=== PATIENT | male | born 1940 | race Caucasian/White ===

== ENCOUNTER 2018-10-21 14:02 | Inpatient (IN) ==
[2018-10-21 14:31] LABS: Basophils % 0.3 % (0.0-0.8); Hematocrit 48.6 VOL% (42.0-52.0); Immature Granulocytes % 0.3 %; Immature Granulocytes Absolute 0.02 #; Lymphocytes # 0.5 10*3/uL (1.4-4.0); Lymphocytes % 6.5 % (21.2-54.2); Mean Corpuscular HGB Conc 32.9 GM/DL (32-36); Mean Corpuscular Hemoglobin 31 PG (27-34); Mean Corpuscular Volume 93.8 FL (87-102); Mean Platelet Volume 10.6 FL (9.6-12.0); Monocytes # 0.6 10*3/uL (0.11-0.8); Monocytes % 7.7 % (1.7-12.7); Neutrophils # 6.8 10*3/uL (1.4-7.4); Neutrophils % 85.2 % (38.7-73.9); Platelet Count 174 T/CUMM (130-400); Red Blood Count 5.18 MC/CUMM (3.8-5.5); Red Cell Distribution Width 12.6 % (9.3-17.3)
[2018-10-21 14:55] LABS: Albumin 3.6 G/DL (3.4-5.0); Bilirubin,Total 1.4 MG/DL (0.2-1.0); Calcium 8.9 MG/DL (8.5-10.1); Osmolality,Calculated 274.7 MOS/KG (273-304); Potassium 4.9 MMOL/L (3.5-5.1); Total Protein 7.8 G/DL (6.4-8.3)
[2018-10-21] MEDS ORDERED: DEXAMETHASONE 10 MG/1 ML VIAL IV STA (15:04)
[2018-10-21] MEDS ORDERED: SODIUM CHLORIDE 0.9% 1,000 ML IV STA (15:06)
[2018-10-21] MEDS ORDERED: chlorproMAZINE 25 MG/1 ML AMP IM STA (15:21)
[2018-10-21 15:42] LABS: Apearance,Urine Slightly Hazy (Clear); Bacteria,Urine Occasional /HPF (Few); Bilirubin,Urine Negative (Negative); Blood, Urine Negative (Negative); Glucose,Urine (UA) Negative (Negative); Hyaline Casts,Urine 3 /LPF (0-3); Ketones,Urine 5 mg/dL (Negative); Mucus,Urine Occasional /LPF (Occasional); Nitrite,Urine Negative (Negative); Protein,Urine 100 MG/DL; RBC,Urine 1 /HPF (0-4); Urine Color Yellow (Yellow); Urine Specific Gravity 1.027 (1.001-1.035); WBC,Urine 2 /HPF (0-6)
[2018-10-21 15:53] LABS: Hypochromasia Slight; Platelet Estimate Normal
[2018-10-21] MEDS ORDERED: MAGNESIUM SULF RIDER 2 GM in PREMIX 1 EACH IV PRN (18:09)
[2018-10-21] MEDS ORDERED: ZALEPLON 5 MG CAPSULE PO PRN (18:09)
[2018-10-21] MEDS ORDERED: ONDANSETRON 4 MG/2 ML VIAL IV PRN (18:09)
[2018-10-21] MEDS ORDERED: DEXTROSE 50% 25 GM/50 ML VIAL IV PRN (18:09)
[2018-10-21] MEDS ORDERED: ACETAMINOPHEN 325 MG TABLET PO PRN (18:09)
[2018-10-21] MEDS ORDERED: PROMETHAZINE 25 MG/1 ML VIAL IM PRN (18:09)
[2018-10-21] MEDS ORDERED: MAGNESIUM SULF RIDER 4 GM in PREMIX 1 EACH IV PRN (18:09)
[2018-10-21] MEDS ORDERED: POTASSIUM CHLORIDE RIDER 10 MEQ in PREMIX 1 EACH IV PRN (18:09)
[2018-10-21] MEDS ORDERED: GLUCAGON 1 MG VIAL IM PRN (18:09)
[2018-10-21] MEDS: SODIUM CHLORIDE 0.9% 1,000 ML IV SCH (19:40)
[2018-10-21] MEDS: DOCUSATE SODIUM 100 MG CAPSULE PO SCH (20:56)
[2018-10-21] MEDS: HEPARIN 5,000 UNIT/1 ML VIAL SUBCUT SCH (21:19)
[2018-10-22 03:14] LABS: Basophils % 0.1 % (0.0-0.8); Hematocrit 41.6 VOL% (42.0-52.0); Hemoglobin 13.9 GM/DL (14.0-18.0); Immature Granulocytes % 0.3 %; Immature Granulocytes Absolute 0.02 #; Lymphocytes # 0.7 10*3/uL (1.4-4.0); Mean Corpuscular HGB Conc 33.4 GM/DL (32-36); Mean Corpuscular Hemoglobin 31 PG (27-34); Mean Corpuscular Volume 92.7 FL (87-102); Mean Platelet Volume 10.8 FL (9.6-12.0); Monocytes # 0.3 10*3/uL (0.11-0.8); Monocytes % 3.7 % (1.7-12.7); Neutrophils # 5.8 10*3/uL (1.4-7.4); Neutrophils % 85.9 % (38.7-73.9); Platelet Count 131 T/CUMM (130-400); Red Blood Count 4.49 MC/CUMM (3.8-5.5); Red Cell Distribution Width 12.5 % (9.3-17.3); White Blood Count 6.8 T/CUMM (4-12)
[2018-10-22 03:50] LABS: Bilirubin,Total 0.7 MG/DL (0.2-1.0); Calcium 8.6 MG/DL (8.5-10.1); Osmolality,Calculated 279.2 MOS/KG (273-304); Potassium 4.3 MMOL/L (3.5-5.1); Thyroid Stimulating Hormone 0.892 uIU/ml (0.358-3.74); Total Protein 6.8 G/DL (6.4-8.3)
[2018-10-22] MEDS: SODIUM CHLORIDE 0.9% 1,000 ML IV SCH ×2 (04:41→14:33)
[2018-10-22] MEDS: HEPARIN 5,000 UNIT/1 ML VIAL SUBCUT SCH ×3 (04:41→20:40)
[2018-10-22] MEDS ORDERED: diphenhydrAMINE 50 MG/1 ML VIAL IV ONE (08:00)
[2018-10-22] MEDS ORDERED: LORazepam 2 MG/1 ML VIAL IV ONE (08:00)
[2018-10-22] MEDS: DOCUSATE SODIUM 100 MG CAPSULE PO SCH ×2 (09:01→20:40)
[2018-10-22] MEDS: PANTOPRAZOLE 40 MG TABLET PO SCH (09:01)
[2018-10-22] MEDS: DEXAMETHASONE 4 MG/1 ML VIAL IV SCH ×2 (11:54→20:54)
[2018-10-22] MEDS ORDERED: DIAZEPAM 5 MG TABLET PO ONE (12:28)
[2018-10-22] MEDS ORDERED: chlorproMAZINE INJ 25 MG in SODIUM CHLORIDE 0.9% 100 ML IV ONE (14:48)
[2018-10-23] MEDS: HEPARIN 5,000 UNIT/1 ML VIAL SUBCUT SCH ×2 (04:11→15:38)
[2018-10-23 04:43] LABS: Hematocrit 40.7 VOL% (42.0-52.0); Hemoglobin 13.5 GM/DL (14.0-18.0); Lymphocytes % 6.3 % (21.2-54.2); Mean Corpuscular HGB Conc 33.2 GM/DL (32-36); Mean Corpuscular Hemoglobin 31 PG (27-34); Mean Platelet Volume 11.7 FL (9.6-12.0); Neutrophils % 88.4 % (38.7-73.9); Platelet Count 132 T/CUMM (130-400); Red Blood Count 4.33 MC/CUMM (3.8-5.5); Red Cell Distribution Width 12.5 % (9.3-17.3); White Blood Count 7.8 T/CUMM (4-12)
[2018-10-23 04:44] LABS: Basophils % 0.3 % (0.0-0.8); Immature Granulocytes % 0.3 %; Immature Granulocytes Absolute 0.02 #; Lymphocytes # 0.5 10*3/uL (1.4-4.0); Monocytes # 0.4 10*3/uL (0.11-0.8); Monocytes % 4.7 % (1.7-12.7); Neutrophils # 6.9 10*3/uL (1.4-7.4)
[2018-10-23 05:23] LABS: Albumin 2.6 G/DL (3.4-5.0); Bilirubin,Total 0.7 MG/DL (0.2-1.0); Osmolality,Calculated 282.7 MOS/KG (273-304); Potassium 4.2 MMOL/L (3.5-5.1); Thyroid Stimulating Hormone 2.33 uIU/ml (0.358-3.74); Total Protein 6.4 G/DL (6.4-8.3)
[2018-10-23 06:07] LABS: Band Neutrophils 14 % (0-10); Lymphocytes 7 % (20-55); Segmented Neutrophils 75 % (50-85)
[2018-10-23 06:09] LABS: Platelet Estimate Normal; Total Cells Counted 100
[2018-10-23] MEDS ORDERED: FUROSEMIDE 40 MG/4 ML VIAL IV ONE (08:51)
[2018-10-23] MEDS: DEXAMETHASONE 4 MG/1 ML VIAL IV SCH ×2 (09:03→21:04)
[2018-10-23] MEDS: DOCUSATE SODIUM 100 MG CAPSULE PO SCH ×2 (09:06→21:04)
[2018-10-23] MEDS: PANTOPRAZOLE 40 MG TABLET PO SCH (09:06)
[2018-10-23] MEDS: SODIUM CHLORIDE 0.9% 1,000 ML IV SCH ×3 (12:35→13:55)
[2018-10-23] MEDS ORDERED: HALOPERIDOL 5 MG/ML AMP IV ONE (17:22)
[2018-10-23] MEDS ORDERED: diphenhydrAMINE 50 MG/1 ML VIAL IV ONE (17:23)
[2018-10-23] MEDS: MORPHINE 4 MG/1 ML VIAL IV PRN (23:04)
[2018-10-24 03:14] LABS: Basophils % 0.1 % (0.0-0.8); Hematocrit 40.8 VOL% (42.0-52.0); Hemoglobin 13.6 GM/DL (14.0-18.0); Immature Granulocytes % 0.4 %; Immature Granulocytes Absolute 0.03 #; Lymphocytes # 0.5 10*3/uL (1.4-4.0); Lymphocytes % 5.9 % (21.2-54.2); Mean Corpuscular HGB Conc 33.3 GM/DL (32-36); Mean Corpuscular Hemoglobin 31 PG (27-34); Mean Corpuscular Volume 93.4 FL (87-102); Mean Platelet Volume 12.2 FL (9.6-12.0); Monocytes # 0.4 10*3/uL (0.11-0.8); Monocytes % 4.6 % (1.7-12.7); Platelet Count 142 T/CUMM (130-400); Red Blood Count 4.37 MC/CUMM (3.8-5.5); Red Cell Distribution Width 12.5 % (9.3-17.3); White Blood Count 7.8 T/CUMM (4-12)
[2018-10-24 03:33] LABS: Albumin 2.7 G/DL (3.4-5.0); Bilirubin,Total 0.6 MG/DL (0.2-1.0); Calcium 8.8 MG/DL (8.5-10.1); Osmolality,Calculated 284.7 MOS/KG (273-304); Potassium 3.9 MMOL/L (3.5-5.1); Thyroid Stimulating Hormone 1.91 uIU/ml (0.358-3.74); Total Protein 6.4 G/DL (6.4-8.3)
[2018-10-24 04:24] LABS: Band Neutrophils 4 % (0-10); Lymphocytes 6 % (20-55); Platelet Estimate Decreased; Segmented Neutrophils 85 % (50-85); Total Cells Counted 100
[2018-10-24] MEDS: DEXAMETHASONE 4 MG/1 ML VIAL IV SCH (11:02)
[2018-10-24] MEDS: PANTOPRAZOLE 40 MG TABLET PO SCH (11:09)
[2018-10-24] MEDS: DOCUSATE SODIUM 100 MG CAPSULE PO SCH ×2 (11:09→20:02)
[2018-10-25 05:08] LABS: Basophils # 0.1 10*3/uL (0.0-0.2); Basophils % 0.5 % (0.0-0.8); Hematocrit 45.6 VOL% (42.0-52.0); Hemoglobin 14.7 GM/DL (14.0-18.0); Immature Granulocytes % 1.1 %; Immature Granulocytes Absolute 0.12 #; Lymphocytes % 8.6 % (21.2-54.2); Mean Corpuscular HGB Conc 32.2 GM/DL (32-36); Mean Corpuscular Hemoglobin 30 PG (27-34); Mean Corpuscular Volume 94.4 FL (87-102); Mean Platelet Volume 12.5 FL (9.6-12.0); Monocytes # 0.4 10*3/uL (0.11-0.8); Monocytes % 3.8 % (1.7-12.7); Neutrophils # 9.7 10*3/uL (1.4-7.4); Platelet Count 191 T/CUMM (130-400); Red Blood Count 4.83 MC/CUMM (3.8-5.5); Red Cell Distribution Width 12.6 % (9.3-17.3); White Blood Count 11.3 T/CUMM (4-12)
[2018-10-25 05:18] LABS: INR 1.1; PT Patient Result 11.8 SECS; Partial Thromboplastin Time 25.3 SECS (0-40)
[2018-10-25 05:30] LABS: Band Neutrophils 4 % (0-10); Hypochromasia 1+; Lymphocytes 12 % (20-55); Platelet Estimate Adequate; Segmented Neutrophils 82 % (50-85); Total Cells Counted 100
[2018-10-25 05:36] LABS: Albumin 2.8 G/DL (3.4-5.0); Bilirubin,Total 1.1 MG/DL (0.2-1.0); Calcium 8.8 MG/DL (8.5-10.1); Osmolality,Calculated 282.7 MOS/KG (273-304); Thyroid Stimulating Hormone 2.44 uIU/ml (0.358-3.74); Total Protein 6.8 G/DL (6.4-8.3)
[2018-10-25] MEDS: SODIUM CHLORIDE 0.9% 1,000 ML IV SCH ×2 (08:25→11:34)
[2018-10-25] MEDS: PANTOPRAZOLE 40 MG TABLET PO SCH (08:40)
[2018-10-25] MEDS: DOCUSATE SODIUM 100 MG CAPSULE PO SCH ×2 (08:40→21:46)
[2018-10-25] MEDS ORDERED: chlorproMAZINE 25 MG TABLET PO PRN (10:41)
[2018-10-25] MEDS: ENOXAPARIN 40 MG/0.4 ML SYRINGE SUBCUT SCH ×2 (11:33→11:44)
[2018-10-25] MEDS: POLYETHYLENE GLYCOL POWDER 17 GM PACK PO SCH (11:34)
[2018-10-26] MEDS ORDERED: METOPROLOL TARTRATE 5 MG/5 ML VIAL IV ONE (03:41)
[2018-10-26] MEDS: MORPHINE 4 MG/1 ML VIAL IV PRN ×3 (04:28→21:09)
[2018-10-26] MEDS: HYDROmorphone 2 MG/1 ML VIAL IV PRN ×2 (08:02→16:26)
[2018-10-26] MEDS ORDERED: HYDROmorphone 2 MG/1 ML VIAL ONE (08:09)
[2018-10-26] MEDS ORDERED: DEXT 5% NACL 0.45% KCL 20 MEQ 20 MEQ/1,000 ML BAG IV SCH (08:30)
[2018-10-26] MEDS ORDERED: APIXABAN 5 MG TABLET PO SCH (09:00)
[2018-10-26 09:01] LABS: Basophils % 0.1 % (0.0-0.8); Hematocrit 47.7 VOL% (42.0-52.0); Hemoglobin 15.8 GM/DL (14.0-18.0); Immature Granulocytes % 0.8 %; Lymphocytes # 0.5 10*3/uL (1.4-4.0); Lymphocytes % 3.7 % (21.2-54.2); Mean Corpuscular HGB Conc 33.1 GM/DL (32-36); Mean Corpuscular Hemoglobin 31 PG (27-34); Mean Corpuscular Volume 92.6 FL (87-102); Monocytes # 0.2 10*3/uL (0.11-0.8); Monocytes % 1.5 % (1.7-12.7); Neutrophils # 12.3 10*3/uL (1.4-7.4); Neutrophils % 93.9 % (38.7-73.9); Platelet Count 214 T/CUMM (130-400); Red Blood Count 5.15 MC/CUMM (3.8-5.5); Red Cell Distribution Width 12.7 % (9.3-17.3)
[2018-10-26] MEDS ORDERED: BICALUTAMIDE 50 MG TABLET PO SCH (09:30)
[2018-10-26] MEDS ORDERED: MELOXICAM 7.5 MG TABLET PO SCH (09:30)
[2018-10-26 09:40] LABS: Calcium 8.5 MG/DL (8.5-10.1); Osmolality,Calculated 285.1 MOS/KG (273-304); Potassium 4.4 MMOL/L (3.5-5.1)
[2018-10-26] MEDS: DOCUSATE SODIUM 100 MG CAPSULE PO SCH (09:42)
[2018-10-26] MEDS: PANTOPRAZOLE 40 MG TABLET PO SCH (09:42)
[2018-10-26] MEDS: POLYETHYLENE GLYCOL POWDER 17 GM PACK PO SCH (09:42)
[2018-10-26 09:50] LABS: Band Neutrophils 25 % (0-10); Hypochromasia 1+; Lymphocytes 5 % (20-55); Myelocytes 1 %; Platelet Estimate Adequate; Segmented Neutrophils 62 % (50-85); Total Cells Counted 100
[2018-10-26] MEDS ORDERED: CLINDAMYCIN INJ 600 MG in PREMIX 1 EACH IV SCH (11:00)
[2018-10-26] MEDS: SODIUM CHLORIDE 0.9% 1,000 ML IV SCH (11:05)
[2018-10-26] MEDS: DEXTROSE 5% NACL 0.45% 1,000 ML IV SCH (11:11)
[2018-10-26] MEDS: PIPERACILLIN/TAZOBACTAM 3,375 MG in SODIUM CHLORIDE 0.9% 100 ML IV SCH ×2 (12:40→20:41)
[2018-10-26] MEDS: ALBUTEROL/IPRATROPIUM 3 ML NEB RESP TX SCH ×2 (13:50→20:18)
[2018-10-26] MEDS ORDERED: methylPREDNISolone SOD SUC 40 MG/1 ML VIAL IV SCH (14:00)
[2018-10-26] MEDS ORDERED: NOREPINEPHRINE 8 MG in SODIUM CHLORIDE 0.9% 242 ML IV PRN (15:15)
[2018-10-26] MEDS: fentaNYL 25 MCG/HR PATCH TRANSDERM SCH (17:14)
[2018-10-26] MEDS: cefTRIAXone 1,000 MG in SYRINGE 1 EACH IV SCH (17:16)
[2018-10-26] MEDS ORDERED: ENOXAPARIN 40 MG/0.4 ML SYRINGE SUBCUT SCH (21:00)
[2018-10-26] MEDS: methylPREDNISolone SOD SUC 40 MG/1 ML VIAL IV SCH (22:28)
[2018-10-27] MEDS: HYDROmorphone 2 MG/1 ML VIAL IV PRN (00:09)
[2018-10-27] MEDS: ALBUTEROL/IPRATROPIUM 3 ML NEB RESP TX SCH ×3 (00:35→13:21)
[2018-10-27] MEDS: PIPERACILLIN/TAZOBACTAM 3,375 MG in SODIUM CHLORIDE 0.9% 100 ML IV SCH ×2 (04:10→11:57)
[2018-10-27 04:44] LABS: Basophils % 0.1 % (0.0-0.8); Hematocrit 46.6 VOL% (42.0-52.0); Hemoglobin 14.6 GM/DL (14.0-18.0); Immature Granulocytes % 5.3 %; Immature Granulocytes Absolute 1.77 #; Lymphocytes # 0.4 10*3/uL (1.4-4.0); Lymphocytes % 1.2 % (21.2-54.2); Mean Corpuscular HGB Conc 31.3 GM/DL (32-36); Mean Corpuscular Hemoglobin 31 PG (27-34); Mean Corpuscular Volume 97.7 FL (87-102); Mean Platelet Volume 12.3 FL (9.6-12.0); Monocytes # 0.4 10*3/uL (0.11-0.8); Neutrophils # 30.8 10*3/uL (1.4-7.4); Neutrophils % 92.4 % (38.7-73.9); Platelet Count 217 T/CUMM (130-400); Red Blood Count 4.77 MC/CUMM (3.8-5.5); Red Cell Distribution Width 13.2 % (9.3-17.3); White Blood Count 33.3 T/CUMM (4-12)
[2018-10-27 05:05] LABS: Calcium 7.7 MG/DL (8.5-10.1); Osmolality,Calculated 300.7 MOS/KG (273-304); Potassium 4.4 MMOL/L (3.5-5.1)
[2018-10-27 05:15] LABS: Band Neutrophils 20 % (0-10); Hypochromasia Slight; Lymphocytes 2 % (20-55); Metamyelocytes 2 %; Myelocytes 5 %; Platelet Estimate Adequate; Segmented Neutrophils 67 % (50-85); Total Cells Counted 100
[2018-10-27] MEDS: MORPHINE 4 MG/1 ML VIAL IV PRN ×3 (05:21→20:18)
[2018-10-27] MEDS: methylPREDNISolone SOD SUC 40 MG/1 ML VIAL IV SCH ×2 (06:19→14:42)
[2018-10-27] MEDS: POLYETHYLENE GLYCOL POWDER 17 GM PACK PO SCH (08:28)
[2018-10-27] MEDS: DEXTROSE 5% NACL 0.45% 1,000 ML IV SCH ×2 (09:30→14:43)
[2018-10-27] MEDS: cefTRIAXone 1,000 MG in SYRINGE 1 EACH IV SCH (16:21)
[2018-10-27] MEDS ORDERED: MORPHINE 10 MG/5 ML UDCUP PO PRN (16:54)
[2018-10-27] MEDS ORDERED: SCOPOLAMINE 1.5 MG PATCH TRANSDERM SCH (17:00)
[2018-10-28] MEDS: MORPHINE 4 MG/1 ML VIAL IV PRN (01:02)
[2018-10-28] MEDS: HYDROmorphone 2 MG/1 ML VIAL IV PRN ×4 (02:35→21:07)
[2018-10-28 20:33] VITALS: BP 110/52
[2018-10-28] MEDS: LORazepam 2 MG/1 ML VIAL IV PRN (21:41)
[2018-10-29] MEDS: HYDROmorphone 2 MG/1 ML VIAL IV PRN ×3 (03:30→14:20)
[2018-10-29] MEDS: LORazepam 2 MG/1 ML VIAL IV PRN (06:56)
[2018-10-29] MEDS: MORPHINE 4 MG/1 ML VIAL IV PRN ×3 (07:27→13:51)
[2018-10-29] MEDS: fentaNYL 25 MCG/HR PATCH TRANSDERM SCH ×2 (07:28→08:03)
== END 2018-10-29 17:48 | disposition expired | DRG 542 ==
LOC: N.ED 14:02 → N.EDINP 18:09 → SUATTDRO 18:09 → N.4E 20:27 → N.CC 10-26 08:37 → N.TELES 10-27 09:24
PROVIDERS: ADMIT Internal Medicine; ATTEND Hospitalist